=== PATIENT | female | born 1950 | race Asian ===

== ENCOUNTER 2025-06-23 06:26 | Emergency (ER) | payer MEDICARE ==
[~2025-06-23] VITALS: Ht 152.4 cm; Wt 62.3 kg
[2025-06-23 06:54] VITALS: BP 161/81; PULSE 72; RESP 18; TEMP 98.2; O2SAT 100
[2025-06-23] MEDS ORDERED: SITA25 PO (07:01)
[2025-06-23] MEDS ORDERED: GLIP5TAB16 PO (07:01)
[2025-06-23] MEDS ORDERED: LOSA-381 PO (07:01)
[2025-06-23] MEDS ORDERED: LEVO25TA9 PO (07:01)
[2025-06-23] MEDS ORDERED: BACITRACIN 0.9 GM PACKET OINTMENT TP ONE (07:45)
[2025-06-23] MEDS ORDERED: LIDOCAINE 1% 10 ML VIAL SQ ONE (08:00)
== END 2025-06-23 08:14 | disposition home or self-care (01) ==
LOC: EMS 06:26
DX: S01.81XA Laceration without foreign body of other part of head, initial encounter (principal); E11.9 Type 2 diabetes mellitus without complications; E03.9 Hypothyroidism, unspecified; Z79.899 Other long term (current) drug therapy; Z79.84 Long term (current) use of oral hypoglycemic drugs; W01.10XA Fall on same level from slipping, tripping and stumbling with subsequent striking against unspecified object, initial encounter; Y93.89 Activity, other specified; Y92.89 Other specified places as the place of occurrence of the external cause; Y99.8 Other external cause status
CPT/HCPCS: 12013; 99282; Z7502; Z7610